=== PATIENT | female | born 2005 | race Two or more races ===

== ENCOUNTER 2024-07-08 11:02 | Day surgery (SDC) | payer OTHER ==
[2024-07-08] MEDS ORDERED: hydrALAZINE 20 MG/ML VIAL SLOW IVP PRN (12:43)
[2024-07-08] MEDS ORDERED: Acetaminophen 500 MG TAB PO SCH (12:45)
[2024-07-08 13:13] LABS: Bilirubin Neg (Negative); Blood, Urine 250 (Negative); Clarity Slightly Cloudy (Clear); Glucose, Urine (Dipstick) Normal (Negative); Ketone, Urine Negative (Negative); Leukocyte 25 (Negative); Nitrite Negative (Negative); Protein, Urine (Dipstick) 30 mg/dl (Neg-Trace); Specific Gravity, Urine 1.025 (1.005-1.030)
[2024-07-08 13:33] LABS: CAUTI Indications for Culture Pregnancy; RBC/HPF Greater than 50 HPF (0-3); WBC/HPF 0-3 HPF (0-3)
[2024-07-08 13:34] LABS: Bacteria/HPF 1+ HPF (None Seen); Mucous/LPF 1+ LPF (<2+)
[2024-07-08 13:35] LABS: Urine Culture Reflex No No; Urine Culture Reflex Yes Yes
== END 2024-07-08 16:09 | disposition home or self-care (01) ==
LOC: CSHLD/OP 11:02
PROVIDERS: ATTEND Family Medicine
DX: O46.93 Antepartum hemorrhage, unspecified, third trimester (principal); O99.343 Other mental disorders complicating pregnancy, third trimester; F41.9 Anxiety disorder, unspecified; F32.9 Major depressive disorder, single episode, unspecified; O09.33 Supervision of pregnancy with insufficient antenatal care, third trimester; Z91.410 Personal history of adult physical and sexual abuse; Z90.89 Acquired absence of other organs; Z3A.35 35 weeks gestation of pregnancy
CPT/HCPCS: 76815; 76819; 81001; 87086; 87480; 87510; 87660; 99283

== ENCOUNTER 2024-08-05 11:16 | Inpatient (IN) | payer OTHER ==
[2024-08-05 11:38] VITALS: BMI 43.8
[2024-08-05] MEDS ORDERED: hydrALAZINE 20 MG/ML VIAL SLOW IVP PRN ×2 (12:06→14:06)
[2024-08-05] MEDS: Acetaminophen 500 MG TAB PO SCH ×2 (13:12→19:26)
[2024-08-05] MEDS ORDERED: Diphenoxylate HCl/Atropine Tablet PO PRN (14:06)
[2024-08-05] MEDS ORDERED: Methylergonovine 0.2 MG/ML VIAL IM PRN (14:06)
[2024-08-05] MEDS ORDERED: Lidocaine 1% (PF) 30 ML VIAL SC PRN (14:06)
[2024-08-05] MEDS ORDERED: Tranexamic Acid 1,000 MG/10 ML VIAL IVP PRN (14:06)
[2024-08-05] MEDS ORDERED: Promethazine HCl 25 MG/ML VIAL IM PRN ×2 (14:06→21:42)
[2024-08-05] MEDS ORDERED: Carboprost 250 MCG/ML AMP IM PRN (14:06)
[2024-08-05] MEDS ORDERED: Docusate 100 MG CAP PO PRN (14:06)
[2024-08-05] MEDS ORDERED: Misoprostol 200 MCG TAB PR PRN (14:06)
[2024-08-05] MEDS ORDERED: Misoprostol 100 MCG TAB VAG SCH (14:15)
[2024-08-05] MEDS ORDERED: Lactated Ringer's 1,000 ML IV SCH (14:15)
[2024-08-05] MEDS ORDERED: Oxytocin 30 units/NS 500 ML 500 ML IV SCH ×3 (14:15)
[2024-08-05 16:12] LABS: Hemoglobin 10.9 g/dL (12.0-15.5); Mean Corpuscular HGB CONC 32.1 g/dL (32.0-36.0); Mean Corpuscular Hemoglobin 25.8 pg (27.0-33.0); Mean Corpuscular Volume 80.6 fL (81.6-98.3); Mean Platelet Volume 10.6 fL (7.4-10.4); Platelet Count 207 10x3/uL (150-450); RBC Distribution Width 15.5 % (11.5-14.5); Red Blood Cell (RBC) Count 4.22 10x6/uL (3.90-5.03); White Blood Cell (WBC) Count 10.4 10x3/uL (3.5-10.5)
[2024-08-05] MEDS: Misoprostol 100 MCG TAB VAG SCH (16:38)
[2024-08-05 16:45] LABS: HBsAg Index 0.14 S/CO (0-0.99); Hep B Surf Ag - L&D Non-Reactive S/CO (NonReactive)
[2024-08-05 16:46] LABS: Syphilis Antibody Nonreactive (Nonreactive); Syphilis Antibody Index 0.04 S/CO (<1.00 Non-Reactive)
[2024-08-05] MEDS ORDERED: Moisturizing Cream (Eucerin) 113 GM JAR TOP PRN (21:42)
[2024-08-05] MEDS ORDERED: Naloxone HCl 0.4 mg/ml Vial IVP PRN ×2 (21:42)
[2024-08-05] MEDS ORDERED: ePHEDrine Sulfate 50 MG/10 ML VIAL SLOW IVP PRN (21:42)
[2024-08-05] MEDS ORDERED: Ondansetron PF 4 MG/2 ML Vial IVP PRN (21:42)
[2024-08-05] MEDS ORDERED: Lactated Ringer's 500 ML IV PRN (21:42)
[2024-08-05] MEDS ORDERED: diphenhydrAMINE 50 MG/ML VIAL IVP PRN (21:42)
[2024-08-05] MEDS: Penicillin G Potassium 5 MILL.UNITS in Sodium Chloride 0.9% 100 ML IVPB SCH (21:44)
[2024-08-06] MEDS: Misoprostol 100 MCG TAB PO SCH (00:44)
[2024-08-06] MEDS: Penicillin G 2.5 MILL.units 2.5 MILL.UNITS in Premix 1 BAG IVPB SCH (01:52)
[2024-08-06] MEDS: fentaNYL 2 mcg/Ropivacaine 0.2% Epidural 100 ML CADD EPIDURAL SCH (06:15)
[2024-08-06] MEDS: Ondansetron PF 4 MG/2 ML Vial IVP PRN (13:31)
[2024-08-06] MEDS ORDERED: Lanolin Ointment 7 GM TUBE TOP PRN (15:56)
[2024-08-06] MEDS ORDERED: Methylergonovine 0.2 MG/ML VIAL IM PRN (15:56)
[2024-08-06] MEDS ORDERED: Misoprostol 200 MCG TAB VAG PRN (15:56)
[2024-08-06] MEDS ORDERED: hydrALAZINE 20 MG/ML VIAL SLOW IVP PRN (15:56)
[2024-08-06] MEDS ORDERED: Milk Of Magnesia 30 ML UDCUP PO PRN (15:56)
[2024-08-06] MEDS ORDERED: Bisacodyl 10 MG SUPP PR PRN (15:56)
[2024-08-06] MEDS ORDERED: Preparation H Ointment 28 GM TUBE PR PRN (15:56)
[2024-08-06] MEDS ORDERED: Oxytocin 30 units/NS 500 ML 500 ML IV SCH (16:00)
[2024-08-06] MEDS: Acetaminophen 325 MG TAB PO PRN (17:14)
[2024-08-06] MEDS: Ferrous Sulfate 325 MG TAB PO SCH (19:25)
[2024-08-06] MEDS: Boostrix 0.5 ML (Tdap) VIAL (>/=7 yrs of age) IM ONE (19:26)
[2024-08-06] MEDS: fentaNYL/Ropivacaine Epidural 100 ML ONE (19:28)
[2024-08-06] MEDS: Ibuprofen 800 MG TAB PO SCH (20:17)
[2024-08-06] MEDS: Benzocaine-Menthol 82.5 ML CAN TOP PRN (20:23)
[2024-08-06] MEDS: Docusate 100 MG CAP PO SCH (21:00)
[2024-08-07] MEDS: Prenatal Vitamin 1 TAB PO SCH (10:07)
[2024-08-07] MEDS: Lactated Ringer's 1,000 ML IV SCH (19:14)
[2024-08-07 19:56] VITALS: TEMP 97.7
[2024-08-08 07:29] VITALS: BP 122/59
== END 2024-08-08 14:00 | disposition home or self-care (01) | DRG 806 ==
LOC: CSHLD/OP 11:16 → CSHLD 14:26 → CSHPP 08-06 18:33
PROVIDERS: ADMIT Student in an Organized Health Care Education/Training Program; ATTEND Student in an Organized Health Care Education/Training Program
PROC: 10E0XZZ Delivery of Products of Conception, External Approach (ICD-10-PCS; principal; 2024-08-06)
PROC: 10907ZC Drainage of Amniotic Fluid, Therapeutic from Products of Conception, Via Natural or Artificial Opening (ICD-10-PCS; 2024-08-06)
PROC: 10H07YZ Insertion of Other Device into Products of Conception, Via Natural or Artificial Opening (ICD-10-PCS; 2024-08-06)
DX: O24.420 Gestational diabetes mellitus in childbirth, diet controlled (principal); O44.03 Complete placenta previa NOS or without hemorrhage, third trimester; Z37.0 Single live birth; Z3A.39 39 weeks gestation of pregnancy; O99.824 Streptococcus B carrier state complicating childbirth; O36.5930 Maternal care for other known or suspected poor fetal growth, third trimester, not applicable or unspecified; O70.0 First degree perineal laceration during delivery; O99.214 Obesity complicating childbirth; E66.01 Morbid (severe) obesity due to excess calories
CPT/HCPCS: 36415; 36416; 51702; 82951; 85027; 86780; 86850; 86900; 86901; 87340; 99285; J2405; J2540

== ENCOUNTER 2024-08-10 00:28 | Emergency (ER) | payer OTHER | END 2024-08-10 02:17 | disposition home or self-care (01) | LOC: CSHERS 00:28 | DX: M79.89 Other specified soft tissue disorders (principal) ==